=== PATIENT | female | born 1975 | race Caucasian/White ===

== ENCOUNTER 2018-02-14 11:23 | Emergency (ER) | payer MEDICAID ==
[~2018-02-14] VITALS: Ht 162.6 cm; Wt 61.0 kg
[~2018-02-14 11:23] MED LIST: ALPR-624 PO; ATOM10CA PO; AZIT-63 PO
[2018-02-14 11:35] VITALS: BP 105/71
[2018-02-14] MEDS ORDERED: ketorolac trometh inj. 60 MG/2 ML VIAL IM STA (12:03)
[2018-02-14] MEDS ORDERED: dexamethasone 4mg tablet PO ONE (12:10)
== END 2018-02-14 12:25 | disposition home or self-care (01) ==
LOC: ER 11:23
DX: M54.5 Low back pain (principal); G89.29 Other chronic pain; Z98.890 Other specified postprocedural states; Z56.0 Unemployment, unspecified; Z79.899 Other long term (current) drug therapy
CPT/HCPCS: 96372; 99283; J1885; J8540

== ENCOUNTER 2025-03-23 14:23 | Emergency (ER) | payer MEDICAID ==
[~2025-03-23] VITALS: Ht 167.6 cm; Wt 65.9 kg
[~2025-03-23 14:23] MED LIST changes: +AZIT-164 PO; -AZIT-63 PO
--- NOTE | 2025-03-23 14:47 | ELECTROCARDIOGRAPH REPORT ---
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
[2025-03-23 15:06] LABS: BASOPHILS # (AUTO) 0.1 X10'3 (0-0.2); BASOPHILS % (AUTO) 0.9 % (0-1); EOSINOPHILS # (AUTO) 0.2 X10'3 (0-0.9); EOSINOPHILS % (AUTO) 1.9 % (0-6); HEMATOCRIT 43.6 % (35.0-45.0); HEMOGLOBIN 14.9 g/dl (12.0-16.0); LYMPHOCYTES # (AUTO) 2.4 X10'3 (1.1-4.8); LYMPHOCYTES % (AUTO) 30.9 % (21-51); MEAN CORPUSCULAR HEMOGLOBIN 31.3 PG (27.0-31.0); MEAN CORPUSCULAR HGB CONC 34.2 g/dL (33.0-36.5); MEAN CORPUSCULAR VOLUME 91.5 FL (78-98); MEAN PLATELET VOLUME 7.7 FL (7.4-10.4); MONOCYTES # (AUTO) 0.6 X10'3 (0-0.9); MONOCYTES % (AUTO) 7.5 % (2-12); NEUTROPHILS # (AUTO) 4.6 X10'3 (1.8-7.7); NEUTROPHILS % (AUTO) 58.8 % (42-75); PLATELET COUNT 285 X10'3 (140-440); RED BLOOD COUNT 4.77 X10'6 (4.20-5.60); RED CELL DISTRIBUTION WIDTH 12.9 % (11.5-14.5); WHITE BLOOD COUNT 7.9 X10'3 (4.5-11.0)
--- NOTE | 2025-03-23 15:16 | RADIOLOGY REPORT ---
CHEST RADIOGRAPH Indication: CP Technique: Single frontal view of the chest was obtained COMPARISON: None FINDINGS: Lines and Tubes: None Lungs: Clear Pleura: No effusion. No pneumothorax. Cardiomediastinal contours: Unremarkable Bones: Unremarkable IMPRESSION: No acute disease.
[2025-03-23 15:28] LABS: ALANINE AMINOTRANSFERASE 20 U/L (12-78); ALBUMIN 4.2 G/DL (3.4-5.0); ALBUMIN/GLOBULIN RATIO 1.2 (1.1-1.5); ALKALINE PHOSPHATASE 103 IU/L (46-116); ANION GAP 10 (8-16); ASPARTATE AMINO TRANSFERASE 17 U/L (10-37); BILIRUBIN,TOTAL 0.5 MG/DL (0.1-1.0); BLOOD UREA NITROGEN 7 MG/DL (7-18); BUN/CREATININE RATIO 9.3 (10.0-20.0); CHLORIDE 105 MMOL/L (99-107); CREATININE 0.75 MG/DL (0.40-0.90); GLUCOSE 95 MG/DL (70-104); POTASSIUM 3.4 MMOL/L (3.5-5.1); SODIUM 143 MMOL/L (135-145); TOTAL CARBON DIOXIDE 27.7 MMOL/L (24-32); TOTAL PROTEIN 7.6 G/DL (6.4-8.2); eCRCL 83 ML/MIN; eGFR 81 ML/MIN
[2025-03-23 15:34] LABS: PRO BRAIN NATRIURETIC PEPTIDE 209 PG/ML (0-125)
--- NOTE | 2025-03-23 15:49 | RADIOLOGY REPORT ---
EXAM: CT CT HEAD HISTORY: DIZZINESS ,CONFUSION COMPARISON: None TECHNIQUE: Axial images of the head were obtained and reformatted in coronal and sagittal planes. All CT scans at this medical facility are performed using dose modulation techniques as appropriate t o a performed exam including the following: Automated exposure control was utilized; adjustment of th e MA and/or KV according to patient size; and use of iterative reconstruction technique. CT Dose: CTDI volume is 54 mGy. Dose-length product is 950 mGy*cm FINDINGS: There is no evidence of acute intracranial hemorrhage, mass, mass effect midline shift. There is no h ydrocephalus or extra-axial fluid collection. Rendon-white matter differentiation is maintained. The visualized paranasal sinuses and mastoid air cells are clear. The calvarium is intact. IMPRESSION: 1. No acute intracranial process. HS:Y
--- NOTE | 2025-03-23 18:46 | Physician Documentation ---
History of Present Illness ~ Chief Complaint: Dizziness Stated Complaint: MULTIPLE MED COMPLAINTS Time Seen by MD: 18:32 Primary Medical Doctor: ALVINA Mode of Arrival: POV HPI Patient is seen today with complaints of acute onset dizziness and brain fog/confusion and anxiety and history of anxiety. Patient states symptoms started couple of days ago but became worse this morning. Patient also complains of some neck stiffness but denies any shortness of breath or chest pain or abdominal pain or nausea, vomiting, diarrhea. Patient states he has previously been on Xanax for 14 years but has not taken that medication for quite a few years. She has no other concern or complaint at this time. Medication Reconciliation Allergies: Coded Allergies: aripiprazole (Verified Allergy, 06/15/10) duloxetine HCl (Verified Allergy, 06/15/10) sertraline HCl (Verified Allergy, 06/15/10) Scheduled Alprazolam* (Xanax*), 0.5 MG PO TID, (Reported) Atomoxetine Hcl (Strattera), 10 MG PO DAILY, (Reported) Azithromycin (Zithromax), 250 MG PO DAILY Past Medical History Past Medical History: Chronic Back Pain, Cervical Cancer/Dysplasia, Anxiety Past Surgical History: orthopedic surgeries Alcohol Use: Occasionally Drug Use: none Lives with: Family Lives In: Home Occupation: unemployed Review of Systems Constitutional: Denies: chills, fever, weakness Eyes: Denies: pain, blurred vision ENT: Denies: ear pain, nose pain, throat pain, mouth pain Respiratory: Denies: cough, shortness of breath Cardiovascular: Denies: chest pain, palpitations Gastrointestinal: Denies: abdominal pain, nausea, vomiting Genitourinary: Denies: burning, dysuria Female Genitalia: Denies: vaginal discharge, pelvic pain Neurological: Denies: headache, dizziness Musculoskeletal: Denies: pain, swelling Integumentary: Denies: rash, lesions Allergic/Immunologic: Denies: hives, itching Hematologic/Lymphatic: Denies: no symptoms reported Psychiatric: Denies: depression, anxiety Physical Exam Vital Signs: Temperature: 97.6, Heart Rate: 89, Respiratory Rate: 16, BP: 144/85, Pulse Oximetry: 100, Weight: 65.910 Oxygen Flow Rate: 0 Physical Exam General: Awake and Alert, no acute distress. HEENT: Conjunctiva pink, Sclera clear, Mucus Membranes moist. Neck: On exam I do not appreciate any lymphadenopathy or tenderness to palpation or decreased range of motion of the neck. Supple without masses and tenderness. Resp: Unlabored. Lungs clear to auscultation bilaterally. Heart: Regular Rate and rhythm, normal S1 and S2 without murmur, rub or gallop. Abdomen: Soft and non tender no organomegaly Extremities: No cyanosis,clubbing or edema. Skin: Warm and Dry. Progress Results/Orders Results/Orders Orders - LAM SILVER PAC Chest,Single View (03/23/25 14:36) Monitor (03/23/25 14:36) Saline Lock (03/23/25 14:36) Oxygen (03/23/25 14:36) Hs Troponin I W Calculations (03/23/25 17:36) Urinalysis, Cult If Indicated (03/23/25 14:36) Ct Head (03/23/25 14:52) Completed Orders - LAM SILVER PAC Chest,Single View (03/23/25 14:36) Cbc/Diff (03/23/25 14:36) PBNP (03/23/25 14:36) Electrocardiogram (03/23/25 14:36) CMP (03/23/25 14:36) Hs Troponin I W Calculations (03/23/25 14:36) Hs Troponin I W Calculations (03/23/25 16:36) Ct Head (03/23/25 14:52) Vital Signs 03/23/25 03/23/25 14:29 18:18 Temp 97.6 Pulse 89 Resp 16 16 B/P (MAP) 144/85 Pulse Ox 100 O2 Flow Rate 0 Laboratory Tests Test 03/23/25 14:48 03/23/25 16:34 White Blood Count 7.9 Red Blood Count 4.77 Hemoglobin 14.9 Hematocrit 43.6 Mean Corpuscular Volume 91.5 Mean Corpuscular Hemoglobin 31.3 H Mean Corpuscular Hemoglobin Concent 34.2 Red Cell Distribution Width 12.9 Platelet Count 285 Mean Platelet Volume 7.7 Neutrophils (%) (Auto) 58.8 Lymphocytes (%) (Auto) 30.9 Monocytes (%) (Auto) 7.5 Eosinophils (%) (Auto) 1.9 Basophils (%) (Auto) 0.9 Neutrophils # (Auto) 4.6 Lymphocytes # (Auto) 2.4 Monocytes # (Auto) 0.6 Eosinophils # (Auto) 0.2 Basophils # (Auto) 0.1 CBC Comment Sodium Level 143 Potassium Level 3.4 L Chloride Level 105 Carbon Dioxide Level 27.7 Anion Gap 10 Blood Urea Nitrogen 7 Creatinine 0.75 Estimated GFR/1.73 m2 81 BUN/Creatinine Ratio 9.3 L Glucose Level 95 Calcium Level 9.0 Total Bilirubin 0.5 Aspartate Amino Transf (AST/SGOT) 17 Alanine Aminotransferase (ALT/SGPT) 20 Alkaline Phosphatase 103 Troponin I High Sensitivity < 4 L 5 Troponin I High Sens Percent Delta Troponin I Hi Sens Absolute Change Pro-B-Type Natriuretic Peptide 209 H Total Protein 7.6 Albumin 4.2 Globulin 3.4 Albumin/Globulin Ratio 1.2 Chemistry Comments EKG/XRAY/CT/US/VASC/MRI EKG : Additional Comment EKG interpreted by myself today shows normal sinus rhythm, regular rate at 73 beats per minute, no ST segment elevation or sign of ischemic changes, no axis deviation. Heart Score: Heart Score Response (Comments) Value History Slightly Suspicious 0 EKG Normal 0 Age 45-64 1 Risk Factors 1 or 2 risk factors 1 Troponin Normal limit 0 Total 2 Medical Decision Making Findings Patient is seen today with complaints of acute onset dizziness and brain fog/c onfusion and anxiety and history of anxiety. Patient states symptoms started couple of days ago but became worse this morning. Patient also complains of some neck stiffness but denies any shortness of breath or chest pain or abdominal pain or nausea, vomiting, diarrhea. Patient states he has previously been on Xanax for 14 years but has not taken that medication for quite a few years. She has no other concern or complaint at this time. Patient did have labs drawn that did show elevated pro BNP just over 400. Labs were otherwise largely unremarkable with negative troponins. Head CT was negative for any acute intracranial abnormality. Chest x-ray was unremarkable and EKG was unremarkable. Patient was given a injection of Toradol 30 mg IM in the ED today. Prescription for hydroxyzine 50 mg one tab two to 3 times a day as needed for anxiety sent to patient's pharmacy. Patient will follow up with primary care for referral to Cardiology for further eval and treatment of elevated pro BNP. Prescription of meloxicam 15 mg one tab once a day sent to patient pharmacy take with food once a day Departure Disposition: HOME / SELF CARE / HOMELESS Impression: Primary Impression: Dizziness Additional Impressions: ACUTE HEADACHE Anxiety Condition: Improved Discharge Instructions: Dizziness Additional Instructions: Patient did have labs drawn that did show elevated pro BNP just over 400. Labs were otherwise largely unremarkable with negative troponins. Head CT was negative for any acute intracranial abnormality. Chest x-ray was unremarkable and EKG was unremarkable. Patient was given a injection of Toradol 30 mg IM in the ED today. Prescription for hydroxyzine 50 mg one tab two to 3 times a day as needed for anxiety sent to patient's pharmacy. Patient will follow up with primary care for referral to Cardiology for further eval and treatment of elevated pro BNP. Prescription of meloxicam 15 mg one tab once a day sent to patient pharmacy take with food once a day Referrals: NO PRIMARY CARE PROVIDER (PCP) Prescriptions Meloxicam (Meloxicam) 15 Mg Tablet 1 TAB PO DAILY for 30 Days, #30 TAB 0 Refills Prov: LAM SILVER 03/23/25 Hydroxyzine HCl (Hydroxyzine HCl) 50 Mg Tablet 1 TAB PO Q8H for anxiety for 30 Days, #90 TAB 0 Refills Prov: LAM SILVER 03/23/25 Signature Scribe Signature: No scribe Attestation: No scribe LAM SILVER March 23, 2025 18:46
[2025-03-23] MEDS: ketorolac trometh 30MG/ML vial 30 MG/ML VIAL IM STA (18:50)
[2025-03-23] MEDS ORDERED: HYDR50TA65 PO (18:54)
[2025-03-23] MEDS ORDERED: MELO-102 PO (18:54)
[2025-03-23 19:00] VITALS: BP 130/70; PULSE 62; RESP 16; TEMP 97.4; O2SAT 99
[2025-03-23 19:03] LABS: BILIRUBIN,URINE NEGATIVE (Neg); CLARITY,URINE CLEAR (Clear); COLOR,URINE YELLOW (Yellow); GLUCOSE, URINE NEGATIVE (Neg); KETONES,URINE NEGATIVE (Neg); LEUKOCYTE ESTERASE ,URINE NEGATIVE (Neg); NITRITES, URINE NEGATIVE (Neg); OCCULT BLOOD,URINE NEGATIVE (Neg); PROTEIN,URINE NEGATIVE (Neg); UROBILINOGEN,URINE 0.2 E.U/dL (0.2-1.0)
[2025-03-23 19:06] LABS: UA COLLECTION TYPE CLN CATCH MIDSTREAM
== END 2025-03-23 19:04 | disposition home or self-care (01) ==
LOC: ER 14:24
DX: R42 Dizziness and giddiness (principal); R51.9 Headache, unspecified; F41.9 Anxiety disorder, unspecified; I16.1 Hypertensive emergency; Z85.41 Personal history of malignant neoplasm of cervix uteri; Z88.8 Allergy status to other drugs, medicaments and biological substances; Z79.899 Other long term (current) drug therapy; Z72.89 Other problems related to lifestyle; Z56.0 Unemployment, unspecified; Z98.890 Other specified postprocedural states
CPT/HCPCS: 36415; 70450; 71045; 80053; 81003; 83880; 84484; 85025; 93005; 96372; 99285; J1885

== ENCOUNTER 2025-05-04 10:06 | Outpatient (CLI) | payer MEDICAID ==
[~2025-05-04] VITALS: Ht 166.4 cm; Wt 65.8 kg
[~2025-05-04 10:06] MED LIST changes: +HYDR50TA65 PO; +MELO-102 PO
[2025-05-04] MEDS: albuterol 2.5 MG/3 ML nebule NEB ONE (10:42)
[2025-05-04 10:44] VITALS: PULSE 88; RESP 18; O2SAT 98
[2025-05-04 10:57] VITALS: PULSE 81; RESP 18
--- NOTE | 2025-05-05 16:59 | PROCEDURE NOTE - Respiratory ---
Procedure Note-Respiratory Providers to Copies To 1: ROOPA KHAN NP Procedure Name: This is a spirometry study dated May 04, 2025. The spirometry study was performed both before and after inhaled bronchodilator. Spirometry measurements: Both the forced vital capacity and the FEV1 are in the normal range. The FEV1 ratio however is diminished. Some of the flow rates are clearly reduced. After inhaled bronchodilators some of the flow rates show slight improvement. Conclusion: This study shows abnormality. There is evidence for obstructive ventilatory defect in the mild category. The patient shows slight improvement with inhaled bronchodilator. These findings are consistent with the patient's diagnosis of smoking-related COPD. It is strongly recommended that the patient abstain from cigarette smoking. Continued use of albuterol inhaler is recommended. We have no previous studies for comparison. PATITO BAIRES MD May 05, 2025 16:59
== END 2025-05-04 23:59 | disposition home or self-care (01) ==
LOC: RT 10:06
PROVIDERS: ATTEND Nurse Practitioner
DX: J44.9 Chronic obstructive pulmonary disease, unspecified (principal)
CPT/HCPCS: 94060; 94760